=== PATIENT | male | born 1975 | race Hispanic/Latino ===

== ENCOUNTER 2019-01-31 19:38 | Emergency (ER) | payer MEDICAID ==
[2019-01-31 19:53] VITALS: BP 117/57; PULSE 73; RESP 16; TEMP 97.8; O2SAT 99
--- NOTE | 2019-01-31 20:05 | ED PDOC ---
HPI: Psych/Substance Abuse Time Seen by Provider: 01/31/19 19:41 Chief Complaint (Nursing): Medical Clearance Chief Complaint (Provider): Medical/Psych Clearance History Per: Patient History/Exam Limitations: no limitations Involuntary Hold By: Local Law Enforcement Additional History Per: Law Enforcement Additional Complaint(s): 43 years old male with no PMHx brought in by Walter PAULINO for medical and psychiatric clearance for incarceration. Patient is in custody for drug possession. He reports last using heroin this morning. Patient denies any physical complaints or reports of trauma. (-) A/V hallucinations, (-) suicidal ideation, (-) homicidal ideation. Otherwise: (-) fever. PMD: None provided Past Medical History Reviewed: Historical Data, Nursing Documentation, Vital Signs Vital Signs: Last Vital Signs Temp 97.8 F 01/31/19 19:51 Pulse 73 01/31/19 19:51 Resp 16 01/31/19 19:51 BP 117/57 L 01/31/19 19:51 Pulse Ox 99 01/31/19 19:51 - Medical History PMH: No Chronic Diseases - Surgical History Surgical History: No Surg Hx - Family History Family History: States: Unknown Family Hx - Social History Current smoker - smoking cessation education provided: Yes Alcohol: None Drugs: Opiates - Allergies Allergies/Adverse Reactions: Allergies Allergy/AdvReac Type Severity Reaction Status Date / Time buprenorphine [From Suboxone] Allergy RASH Verified 01/31/19 19:41 naloxone [From Suboxone] Allergy RASH Verified 01/31/19 19:41 Review of Systems ROS Statement: Except As Marked, All Systems Reviewed And Found Negative Constitutional: Positive for: Other (clearance for incarceration) Physical Exam - Reviewed Nursing Documentation Reviewed: Yes Vital Signs Reviewed: Yes - Physical Exam Comments: GENERAL APPEARANCE: Patient is awake, alert, oriented x 3, in no acute distress. Resting comfortably. NECK: Supple, FROM ENT: Mucus membranes moist. Airway patent, (-) stridor. EYES: (-) conjunctival injection (+) pupils equal and reactive. HEART AND CARDIOVASCULAR: (-) irregularity CHEST AND RESPIRATORY: (-) rales, (-) rhonchi, (-) wheezes; breath sounds equal. Respirations even and nonlabored. ABDOMEN: Soft, (-) distention, (-) tenderness, (-) guarding. NEURO: Mental status as above. Gait: steady. Speech: clear. (-) facial asymmetry - ECG O2 Sat by Pulse Oximetry: 99 (RA) Pulse Ox Interpretation: Normal Medical Decision Making Medical Decision Making: Time: 1999 Initial impression: medical and psychiatric clearance for incarceration Initial plan: --Crisis evaluation --Re-evaluation 2114 Per crisis evaluation, patient to be discharged with the diagnosis of opiate use disorder per Dr Myles. On re-evaluation, patient offers no complaints. On exam, patient remains AAOx3, in no acute distress. Vitals stable. Lab, Diagnostic results d/w the patient in great detail. Diagnosis of medical and psychiatric clearance for incarceration, opiate use disorder d/w the patient. Based on history, exam and diagnostic results, plan will be discharge into PD custody. Return to the emergency room at any time for any new or worsening symptoms. Patient states he fully agrees with and understands discharge instructions. States that he agrees with the plan and disposition. Verbalized and repeated discharge instructions and plan. I have given the patient opportunity to ask any additional questions. Scribe Attestation: Documented by Aydee Hawkins acting as a scribe for Roseann Castañeda PA-C. Provider Scribe Attestation: All medical record entries made by the Scribe were at my direction and personally dictated by me. I have reviewed the chart and agree that the record accurately reflects my personal performance of the history, physical exam, medical decision making, and the department course for this patient. I have also personally directed, reviewed, and agree with the discharge instructions and disposition. Disposition - Clinical Impression Clinical Impression: Opioid use disorder, Medical clearance for incarceration - Patient ED Disposition Is Patient to be Admitted: No Counseled Patient/Family Regarding: Studies Performed, Diagnosis - Disposition Referrals: [facility] [Outside] Disposition: Discharged/Transfer to Law Enforcement Disposition Time: 21:15 Condition: STABLE Additional Instructions: PATIENT IS MEDICALLY AND PSYCHIATRICALLY CLEARED FOR INCARCERATION. Instructions: Drug Abuse and Drug Addiction (DC), Drug Abuse Treatment Forms: [employer] [facility] (Serbian) Print Language: POLISH - POA Present On Arrival: None
== END 2019-01-31 21:42 ==
LOC: H.ER 19:38
DX: F11.10 Opioid abuse, uncomplicated (principal); F17.200 Nicotine dependence, unspecified, uncomplicated; Z00.00 Encounter for general adult medical examination without abnormal findings; Z00.8 Encounter for other general examination